=== PATIENT | female | born 1985 | race Caucasian/White ===

== ENCOUNTER 2016-10-06 12:59 | Emergency (ER) | payer MEDICAID, OTHER ==
[2016-10-06] MEDS ORDERED: NORMAL SALINE 1,000 ML IV ONE (13:22)
[2016-10-06] MEDS ORDERED: ONDANSETRON HCL/PF 2 MG/ML VIAL IV ONE (13:22)
[2016-10-06] MEDS ORDERED: KETOROLAC TROMETHAMINE 30 MG/ML VIAL IV ONE (13:22)
[2016-10-06] MEDS ORDERED: KETOROLAC TROMETHAMINE 30 MG/ML VIAL ONE (13:30)
[2016-10-06] MEDS ORDERED: ONDANSETRON HCL/PF 2 MG/ML VIAL ONE (13:30)
[2016-10-06 13:38] LABS: Urine Bilirubin Negative (NEGATIVE); Urine Blood 250 /ul (NEGATIVE); Urine Ketone 50 mg/dL (NEGATIVE); Urine Nitrite Negative (NEGATIVE); Urine Protein Negative (NEGATIVE); Urine Urobilinogen Normal (NORMAL); Urine pH 6.5 pH (5.0-7.0)
[2016-10-06 13:51] LABS: Urine Appearance Cloudy; Urine Bacteria None Seen; Urine Color Yellow; Urine RBC >50 /hpf (0-5); Urine WBC None Seen /hpf (0-5)
--- NOTE | 2016-10-06 14:07 | ERNOTE ---
Abdominal HPI - Narrative Date of Service: 10/06/16 - General Chief Complaint: Back Pain Time Seen by Provider: 10/06/16 13:12 Source: patient, RN notes reviewed Exam Limitations: no limitations - Immun/Allergies/Home Medications Immunizatons: IMMUNIZATION HX Immunizations Up to Date Yes History of Influenza Vaccine No Hx Pneumococcal Vaccination No Allergies/Adverse Reactions: Allergies codeine Allergy (Intermediate, Verified 09/21/15 12:27) Hives Home Medications: HOME MEDICATIONS Ascorbic Acid [Vitamin C] 500 mg PO DAILY 11/29/15 [Last Taken Unknown] Docusate Sodium [Stool Softener] 50 mg PO BID 11/29/15 [Last Taken Unknown] Ferrous Sulfate [Iron] 325 mg PO DAILY 11/29/15 [Last Taken Unknown] Ibuprofen [Motrin] 200 - 800 mg PO Q6H PRN #100 tab 11/30/15 [Last Taken Unknown ] Oxycodone HCl/Acetaminophen [Percocet 5-325 mg Tablet] 1 each PO Q4H PRN #20 tablet 11/30/15 [Last Taken Unknown] Vit#96/Ferrous Fum/FA [ S] 1 tab PO DAILY 11/30/15 [Last Taken Unknown] HYDROcodone/ACETAMINOPHEN [[place] 5-325] 1 - 2 tab PO Q6H PRN #20 tab 10/06/16 [ Last Taken Unknown] Ibuprofen [Motrin] 600 mg PO Q6H PRN #40 tab 10/06/16 [Last Taken Unknown] Tamsulosin HCl [Flomax] 0.4 mg PO DAILY #14 capsule 10/06/16 [Last Taken Unknown ] - Pain Score Pain Score #1 Pain Score: 10 Abdominal Pain Onset Location: flank Pain Radiation: RLQ - History of Present Illness Narrative: 30 y/o female ambulatory to the ED for right flank pain that began this morning. She has vomited once and continues to have nausea. She denies diarrhea. She reports having kidney stones in the past. She has not taken anything for her symptoms. Date (Duration): 10/06/16 Time (Timing): 05:00 Timing: constant Quality: severe Activities at Onset: none Associated Symptoms: Present: back pain, nausea, vomiting, loss of appetite. Absent: headache, chest pain, neck pain, diaphoresis, diarrhea-gross blood, diarrhea-mucous, fever/chills, heartburn, shortness of breath, swelling/mass in abdomen, syncope, weakness Prior Abdominal Problems: Present: similar symptoms Prior Treatment: Absent: recently seen Review of Systems - Review of Systems Constitutional: Absent: recent illness, fever, chills EYE: Present: no symptoms reported ENT: Present: no symptoms reported Respiratory: Absent: shortness of breath, cough Cardiology: Absent: chest pain, palpitations, syncope Gastrointestinal/Abdominal: Present: nausea, vomiting, eating less, drinking less. Absent: diarrhea, constipation Genitourinary: Absent: frequency, dysuria, hematuria, other - difficulty urinating Musculoskeletal: Present: back pain. Absent: neck pain Skin: Absent: rash, lesions Neurological: Present: no symptoms reported Endocrine: Present: no symptoms reported Hematologic/Lymphatic: Present: no symptoms reported Psych: Present: no symptoms reported - Patient's Past Medical History Patient History - Medical: Kidney stone Patient History - Cardiac/Respiratory: No pertinent hx Patient History - Cancer: No Hx of Cancer Patient History - Surgical Procedures: Patient History - Other: None LMP (females 10-50): Mirena - Social History Living Situations: home Smoking Status: Never smoker Alcohol Use: none Drug Use: none - Immunizations Immunizations Up to Date: Yes Hx Pneumococcal Vaccination: No History of Influenza Vaccine: No Physical Exam - Physical Exam General Appearance: Present: wd/wn, alert, mild distress Eye Exam: Normal inspection: bilateral Neck: Present: normal inspection, nontender, supple, full range of motion Respiratory: Present: no respiratory distress, normal breath sounds, no accessory muscle use, lungs clear Cardiovascular/Chest: Present: regular rate, rhythm, no murmur Gastrointestinal/Abdominal: Present: normal bowel sounds, nondistended, soft, tenderness - Right lower quad Back Exam: Present: no vertebral tenderness, CVA tenderness (R). Absent: CVA tenderness (L) Extremity Exam: Present: normal inspection, no edema, normal range of motion Neurological Exam: Present: alert, oriented, normal mood/affect, no motor/ sensory deficits Skin Exam: Present: normal color, warm/dry ED Progress - Results and Orders Patient's Lab Results:: I have reviewed the patient's lab results. - Vital Signs Patient's Vital Signs:: I have reviewed the patient's vital signs. Vital Signs: Vital Signs 10/06/16 13:05 Temperature 36.6 C Pulse Rate 73 Respiratory 131 H Rate Blood Pressure 132/94 O2 Sat by Pulse 98 Oximetry - CT/Ultrasound CT/Ultrasound Narrative: CT Abdomen/Pelvis W/O Contrast Findings: Exam is limited by noncontrast technique. Lung bases: Images reveal bibasilar dependent atelectasis. ABDOMEN/PELVIS: Liver: The visualized liver is unremarkable. Spleen: Unremarkable. Pancreas: Unremarkable. Gallbladder: Unremarkable. Adrenal glands: Unremarkable. Kidneys: There is a 4 mm calcification at the distal right ureter, just proximal to the right UVJ, with moderate right hydroureter and mild to moderate right hydronephrosis. There is right perinephric and right periureteral fat stranding. There is a 2 mm nonobstructing calculus at the upper to midpole of the left kidney. Normal course of the ureters. No left obstructive uropathy. No obvious renal mass or cyst, however, assessment is limited. There is fat stranding that extends to the anterior right pararenal fascia. Bowel: Limited evaluation of the unopacified hollow viscera. No evidence of bowel obstruction. Normal appendix. Stool retention. Pelvic structures: There is a IUD in satisfactory positioning. Incomplete urinary bladder distention. No bladder calculi. Trace pelvic free fluid. The pelvic structures are otherwise unremarkable.. Vascular structures: Normal caliber aorta. Lymphadenopathy: No significant lymphadenopathy. No pneumoperitoneum. No hemoperitoneum. No loculated fluid collections. Osseous structures: Degenerative changes are present. No acute osseous findings. Abdominal wall: There is a small fat-containing umbilical hernia. IMPRESSION: 4 mm obstructing calculus at the distal right ureter, as above. Nonobstructing left nephrolithiasis. Additional findings and comments are as above. Electronically signed by Margarito Landon D.O.. - Progress/Reassessment Chief Complaint: Back Pain Progress:: Improved Plan - Plan Plan: Pain improved but not completely resolved with Toradol, Morphine given with good results. No nausea/vomiting after Zofran. D/C'd home with equipment to strain urine. Is to contact urology for follow up. Departure - Departure Clinical Impression: Ureteral calculus, right Disposition: Home Follow Up Needed Condition: Stable Instructions: Renal Colic, [id number], Form - Excuse from Work, School, or Physical Activity Additional Instructions: Push fluids Return if you are vomiting and unable to tolerate oral intake/medications, or if medication is not controlling your pain Contact urology Saturday morning Referrals: Mynor Robison MD [Associate] - Prescriptions: HYDROcodone/ACETAMINOPHEN [[place] 5-325] 1 - 2 tab PO Q6H PRN #20 tab PRN Reason: Pain Ibuprofen [Motrin] 600 mg PO Q6H PRN #40 tab PRN Reason: Pain Tamsulosin HCl [Flomax] 0.4 mg PO DAILY #14 capsule
[2016-10-06] MEDS ORDERED: MORPHINE SULFATE 2 MG/ML DISP.SYRIN ONE (14:46)
[2016-10-06] MEDS ORDERED: MORPHINE SULFATE 2 MG/ML DISP.SYRIN IV ONE (14:47)
[2016-10-06 15:25] VITALS: BP 126/73
== END 2016-10-06 15:33 | disposition home or self-care (01) ==
LOC: ER 12:59
DX: N20.1 Calculus of ureter (principal); Z87.442 Personal history of urinary calculi

== ENCOUNTER 2016-10-08 13:27 | Observation (INO) | payer OTHER ==
[2016-10-08 14:19] LABS: Hemoglobin 11.6 gm/dL (12.5-16.0); Mean Cell Volume 88.3 fl (78-100); Mean Corpuscular Hemoglobin 30.1 pg (27-31); Mean Corpuscular Hgb Conc 34.1 g/dl (32-36); Neutrophil # 8.4 K/mm3 (1.3-6.0); Neutrophil % 82.7 % (42-75.0); Platelet Count 223 K/mm3 (150-450); Red Blood Count 3.85 M/mm3 (4.2-5.4); Red Cell Distribution Width 12.1 % (11.5-14.0); White Blood Count 10.1 K/mm3 (4.0-10.5)
[2016-10-08 14:30] LABS: Albumin * 3.1 gm/dl (3.4-5.0); BUN/Creatinine Ratio 9.1 (9.0-21.6); Bilirubin, Total 0.8 mg/dL (0.0-1.1); Ca. Corrected For Albumin 9.1 mg/dL (8.4-10.2); Calcium * 8.7 mg/dL (7.9-10.9); Carbon Dioxide 22.5 mmol/L (24-32.6); Potassium 3.5 mmol/L (3.4-4.6)
[2016-10-08] MEDS ORDERED: HYDROmorphone HCL 1 MG/ML DISP.SYRIN IV ONE (15:55)
[2016-10-08] MEDS ORDERED: NORMAL SALINE 1,000 ML IV ONE (15:55)
--- NOTE | 2016-10-08 16:17 | ERNOTE ---
Medical Problem HPI - Narrative Date of Service: 10/08/16 - General Chief Complaint: General Assessment Time Seen by Provider: 10/08/16 15:45 Source: patient Exam Limitations: no limitations - Immun/Allergies/Home Medications Immunizations: IMMUNIZATION HX Immunizations Up to Date Yes History of Influenza Vaccine No Hx Pneumococcal Vaccination No Allergies/Adverse Reactions: Allergies codeine Allergy (Intermediate, Verified 10/08/16 13:46) Hives Home Medications: HOME MEDICATIONS Ibuprofen [Motrin] 200 - 800 mg PO Q6H PRN #100 tab 11/30/15 [Last Taken Unknown ] HYDROcodone/ACETAMINOPHEN [[place] 5-325] 1 - 2 tab PO Q6H PRN #20 tab 10/06/16 [ Last Taken Unknown] Ibuprofen [Motrin] 600 mg PO Q6H PRN #40 tab 10/06/16 [Last Taken Unknown] Tamsulosin HCl [Flomax] 0.4 mg PO DAILY #14 capsule 10/06/16 [Last Taken Unknown ] - History of Present History Narrative: Pt. comes in with c/o R flank pain generalized muscle aches, chills, diaphoresis , and fatigue. Pt. denies any SOB, CP, NVD, fever, cough, rhinorrhea, sinus congestion, headache. Pt. states that she has been taking the norco for pain and it is not alleviating the pain. Pt. denies any alleviating factors or passing the stone despite taking flomax and straining her urine. Review of Systems - Review of Systems Constitutional: Present: chills, diaphoresis, weakness, fatigue, malaise. Absent: fever EYE: Present: no symptoms reported ENT: Present: no symptoms reported. Absent: nose pain, nose congestion, nasal drainage, sore throat, throat swelling Respiratory: Present: shortness of breath. Absent: cough, orthopnea, wheezing Cardiology: Present: no symptoms reported. Absent: chest pain, palpitations, edema Gastrointestinal/Abdominal: Present: no symptoms reported. Absent: nausea, vomiting, diarrhea, abdominal pain Genitourinary: Present: pain - R flank Musculoskeletal: Present: back pain, neck pain, joint pain Skin: Present: no symptoms reported Neurological: Present: headache. Absent: dizziness/light-headedness, numbness, tingling All Other Systems: All systems neg except as marked - Patient's Past Medical History Patient History - Medical: Kidney stone Patient History - Cardiac/Respiratory: No pertinent hx Patient History - Cancer: No Hx of Cancer Patient History - Surgical Procedures: Patient History - Other: None - Social History Living Situations: home Alcohol Use: none Drug Use: none - Immunizations Immunizations Up to Date: Yes Hx Pneumococcal Vaccination: No History of Influenza Vaccine: No Physical Exam - Physical Exam General Appearance: Present: wd/wn, alert, no apparent distress Eye Exam: Normal inspection: bilateral, PERRL: bilateral, EOMI: bilateral Ears, Nose, Throat: Present: normal ENT inspection, hearing grossly normal, normal pharynx Neck: Present: normal inspection, nontender, supple, full range of motion. Absent: lymphadenopathy (R), lymphadenopathy (L), tender lateral, tender posterior midline Respiratory: Present: no respiratory distress, normal breath sounds, no accessory muscle use, chest nontender, lungs clear. 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 - Results and Orders Patient's Lab Results:: I have reviewed the patient's lab results. - Vital Signs Patient's Vital Signs:: I have reviewed the patient's vital signs. Vital Signs: Vital Signs 10/08/16 10/08/16 13:34 15:51 Temperature 36.9 C 36.6 C Pulse Rate 104 H Respiratory 12 Rate Blood Pressure 131/76 126/73 O2 Sat by Pulse 100 Oximetry - CT/Ultrasound CT/Ultrasound Narrative: CT with unchanged stone and unchanged hydroureter and hydronephrosis. - Progress/Reassessment Chief Complaint: General Assessment Departure - Departure Clinical Impression: Ureteral calculus, right, LUPE (acute kidney injury) Disposition: [facility] Condition: Fair
[2016-10-08] MEDS ORDERED: HYDROmorphone HCL 1 MG/ML DISP.SYRIN ONE ×2 (16:18→19:43)
[2016-10-08] MEDS ORDERED: NITROGLYCERIN IN 5 % DEXTROSE 50 MG/250 ML INFUS..BTL IV PRN (17:32)
[2016-10-08 18:56] LABS: Urine Bilirubin 1 mg/dl (NEGATIVE); Urine Blood 250 /ul (NEGATIVE); Urine Ketone 15 mg/dL (NEGATIVE); Urine Nitrite Negative (NEGATIVE); Urine Protein 30 mg/dL (NEGATIVE); Urine Specific Gravity >=1.030 SP.GR. (1.005-1.010); Urine Urobilinogen Normal (NORMAL)
[2016-10-08 18:57] LABS: Urine Appearance Turbid; Urine Bacteria 2+; Urine Color Dark Yellow; Urine RBC >50 /hpf (0-5); Urine WBC >50 /hpf (0-5)
[2016-10-08] MEDS: HYDROmorphone HCL 1 MG/ML DISP.SYRIN IV PRN ×2 (19:48→21:22)
[2016-10-08] MEDS: NORMAL SALINE 1,000 ML IV PRN (21:22)
--- NOTE | 2016-10-08 21:46 | HP ---
Chief Complaint - Chief Complaint Date of Service: 10/08/16 Time of Service: 21:50 Chief Complaint: " Abdominal pain, Flank Pain, ". Source of HPI- Pt; reliable, ER Provider report. History of Present Illness: Ms. High is a 30-yr-old WF pt who has no pertinent medical history. She seeks medical care mostly through Urgent Care [facility]. Pt reports that on 10/06, she came to the [facility] ER due to severe abdominal pain, RT flank pain & nausea. A CT scan of the abdomen was obtained during that visit and it showed she had a 4mm calcification on RT ureter and 2mm non- obstruction calculus on the LT kidney. She was discharged home from ER with prescription of Narcotics & Flomax. She was also advised to strain all urine and to arrange for a follow- up with urology. Yesterday around 5pm, she felt really tired, had headaches and back pain. She also felt nauseated and could not eat anything for the whole day. She stayed in bed all night until 10.00 when she decided to go to the walk- in clinic today for her symptoms. She is unsure if she had a fever, but says she "woke up in the night a few times drenched in sweat. "Her work-up for upper respiratory infections was negative. She was sent to the ED for further evaluation. Another CT of the abdomen was obtained and the findings were unchanged from previous CT done on 10/06/16. Her hematology lab work showed Left shift but without elevated WBC, and her CR was elevated at 1.65. The UA showed presence of infection. Urology consulted by the ERP. Pt will be admitted under observation for supportive cares with IVF hydration, pain mgt & antiemetics. She will be evaluated by the Urology in am. - Patient's Past Medical History Patient History - Medical: Kidney stone Patient History - Cardiac/Respiratory: No pertinent hx Patient History - Cancer: No Hx of Cancer Patient History - Surgical Procedures: , Other Patient History - Other: None - Family History Father Family History - Medical: No pertinent hx Mother Family History - Medical: No pertinent hx - Social History Living Situations: alone Smoking Status: Never smoker Have you smoked in the past 12 months: No Alcohol Use: rarely Drug Use: none - Immunizations Immunizations Up to Date: Yes Hx Pneumococcal Vaccination: No History of Influenza Vaccine: No Review Of Systems (GEN) - Review of Systems Generalized/Overall Review: Present: Chills, Malaise, Diaphoresis. Absent: Weakness, Fever EENTM: Absent: Eye Pain, Blurred Vision, Double Vision, Nose Congestion Respiratory: Absent: Cough, Shortness of Breath Cardiac: Absent: Chest Pain, Edema, Palpitations Abdominal: Present: Nausea. Absent: Vomiting, Hematemesis, Abdominal Pain, Constipation, Diarrhea Genitourinary: Absent: Burning, Itching, Urgency, Frequency, Hesitancy, Hematuria Musculoskeletal: Absent: Joint Pain, Back Pain, Joint Swelling Neurological: Present: Headache. Absent: Anxiety, Depressed, Emotional Problems , Numbness, Parasthesia, Seizure Skin: Absent: Dryness, Lesions, Lumps Endocrine: Absent: Intolerance to Cold, Intolerance to Heat, Increased Thirst Misc: All systems neg except as marked Allergies/Adverse Reactions: Allergies Allergy/AdvReac Type Severity Reaction Status Date / Time codeine Allergy Intermediate Hives Verified 10/08/16 13:46 Home Medications: HOME MEDICATIONS HYDROcodone/ACETAMINOPHEN [[place] 5-325] 1 - 2 tab PO Q6H PRN #20 tab 10/06/16 [ Last Taken Unknown] Ibuprofen [Motrin] 600 mg PO Q6H PRN #40 tab 10/06/16 [Last Taken Unknown] Tamsulosin HCl [Flomax] 0.4 mg PO DAILY #14 capsule 10/06/16 [Last Taken Unknown ] Exam - Exam Vital Signs: Vital Signs - Last Taken Temp 37.4 C 10/08/16 20:09 Pulse 107 H 10/08/16 20:09 Resp 16 10/08/16 20:09 BP 121/73 10/08/16 20:09 Pulse Ox 100 10/08/16 20:09 Constitutional: Present: Alert, Oriented x3, No distress ENT Exam: Present: normal ENT inspection, hearing grossly normal. Absent: nasal congestion, nasal drainage Eye Exam: bilateral eye: normal inspection, PERRL Neck: Present: full range of motion, supple, normal inspection Back Exam: Present: normal inspection, CVA tenderness (R) Breasts: Present: Exam deferred Respiratory: Present: lungs clear, no accessory muscle use, No wheezing Cardiovascular/Chest: Present: regular rate, rhythm, no murmur Abdomen: Present: Normal bowel sounds, soft, nontender /Rectal: Present: Exam deferred Extremity: Present: normal range of motion, non-tender, normal inspection Skin Exam: Present: warm/dry, no cyanosis, cool/dry Neurologic: Present: no motor/sensory deficits, alert, normal mood/affect, oriented x 3 Appearance: Present: appropriate appearance, appropriate insight Eye contact: Present: cooperative, good eye contact, normal speech Thoughts: Present: normal thought pattern, no apparent hallucination Diagnostic Studies: Abnormal Lab Results 10/08/16 Range/Units Unknown Urine Protein 30 H (NEGATIVE) mg/dL Urine Blood 250 H (NEGATIVE) /ul Urine Bilirubin 1 H (NEGATIVE) mg/dl Prot Sulfosalicylic Acd 2+ H (0) mg/dL Ur Leukocyte Esterase 500 H (NEGATIVE) /ul Urine RBC >50 H (0-5) /hpf Urine WBC >50 H (0-5) /hpf Urine Bacteria 2+ H (NONE) Laboratory Results WBC 10.1 K/mm3 (4.0-10.5) 10/08/16 14:12 RBC 3.85 M/mm3 (4.2-5.4) L 10/08/16 14:12 Hgb 11.6 gm/dL (12.5-16.0) L 10/08/16 14:12 Hct 34.0 % (37.0-47.0) L 10/08/16 14:12 MCV 88.3 fl (78-100) 10/08/16 14:12 MCH 30.1 pg (27-31) 10/08/16 14:12 MCHC 34.1 g/dl (32-36) 10/08/16 14:12 RDW 12.1 % (11.5-14.0) 10/08/16 14:12 Plt Count 223 K/mm3 (150-450) 10/08/16 14:12 MPV 9.0 fl (6.0-9.5) 10/08/16 14:12 Immature Gran % (Auto) 0.50 % (0.001-0.429) H 10/08/16 14:12 Immature Gran # (Auto) 0.05 K/mm3 (0.000-0.0310) H 10/08/16 14:12 Neutrophils % 82.7 % (42-75.0) H 10/08/16 14:12 Lymphocytes % 9.0 % (20-51) L 10/08/16 14:12 Monocytes % 7.4 % (0.0-9) 10/08/16 14:12 Eosinophils % 0.1 % (0.0-3.0) 10/08/16 14:12 Basophils % 0.3 % (0.0-1.0) 10/08/16 14:12 Nucleated RBC % 0.0 k/mm3 (0-1) 10/08/16 14:12 Neutrophils # 8.4 K/mm3 (1.3-6.0) H 10/08/16 14:12 Lymphocytes # 0.9 k/mm3 (1.5-3.5) L 10/08/16 14:12 Monocytes # 0.8 k/mm3 (0.0-1.0) 10/08/16 14:12 Eosinophils # 0.0 k/mm3 (0.0-0.7) 10/08/16 14:12 Absolute Basophils 0.0 k/mm3 (0.0-0.1) 10/08/16 14:12 ESR 44 mm/hr (0-15) H 10/08/16 14:12 Sodium 135 mmol/L (132-142) 10/08/16 14:12 Plasma Sodium 135 mmol/L (130-142) 10/08/16 14:12 Potassium 3.5 mmol/L (3.4-4.6) 10/08/16 14:12 Chloride 103 mmol/L (97-106) 10/08/16 14:12 Carbon Dioxide 22.5 mmol/L (24-32.6) L 10/08/16 14:12 Anion Gap 13.0 mmol/L (6.8-13.8) 10/08/16 14:12 BUN 15 mg/dL (3-23) 10/08/16 14:12 Creatinine 1.65 mg/dL (0.4-1.4) H 10/08/16 14:12 Est GFR (Non-Af Amer) 39 mL/min (60-130) L 10/08/16 14:12 BUN/Creatinine Ratio 9.1 (9.0-21.6) 10/08/16 14:12 Random Glucose 95 mg/dL (70-110) 10/08/16 14:12 Calcium 8.7 mg/dL (7.9-10.9) 10/08/16 14:12 Calcium Adj for Albumin 9.1 mg/dL (8.4-10.2) 10/08/16 14:12 Total Bilirubin 0.8 mg/dL (0.0-1.1) 10/08/16 14:12 AST 10 U/L (0-48) 10/08/16 14:12 ALT 14 U/L (19-67) L 10/08/16 14:12 Alkaline Phosphatase 72 U/L (50-170) 10/08/16 14:12 C-Reactive Prot, Quant Less than 0.2 mg/dL (0.0-0.9) 10/08/16 14:12 Total Protein 7.0 gm/dL (6.2-8.2) 10/08/16 14:12 Albumin 3.1 gm/dl (3.4-5.0) L 10/08/16 14:12 Urine Color Dark yellow 10/08/16 Unknown Urine Appearance Turbid 10/08/16 Unknown Urine pH 6.0 pH (5.0-7.0) 10/08/16 Unknown Ur Specific [place] >=1.030 SP.GR. (1.005-1.010) 10/08/16 Unknown Urine Protein 30 mg/dL (NEGATIVE) H 10/08/16 Unknown Urine Glucose (UA) Negative mg/dL (NEGATIVE) 10/08/16 Unknown Urine Ketones 15 mg/dL (NEGATIVE) 10/08/16 Unknown Urine Blood 250 /ul (NEGATIVE) H 10/08/16 Unknown Urine Nitrate Negative (NEGATIVE) 10/08/16 Unknown Urine Bilirubin 1 mg/dl (NEGATIVE) H 10/08/16 Unknown Urine Ictotest Negative (NEGATIVE) 10/08/16 Unknown Prot Sulfosalicylic Acd 2+ mg/dL (0) H 10/08/16 Unknown Urine Urobilinogen Normal EU/dl (NORMAL) 10/08/16 Unknown Ur Leukocyte Esterase 500 /ul (NEGATIVE) H 10/08/16 Unknown Urine RBC >50 /hpf (0-5) H 10/08/16 Unknown Urine WBC >50 /hpf (0-5) H 10/08/16 Unknown Ur Epithelial Cells 0-5 /hpf (0-5) 10/08/16 Unknown Urine Bacteria 2+ (NONE) H 10/08/16 Unknown Urine Culture Comments Culture to follow 10/08/16 Unknown Assessment/Plan - Assessment/Plan (1) Hydronephrosis Assessment: The CT Abdomen showed 4mm obstructive stone at the distal right ureter causing hydronephrosis. Urology consulted and will evaluate pt in am. Will provide supportive cares with: IVF hydration, pain mgt, & antiemetics. Labs in am. The obstruction may have predisposed her to a UTI. Will cover with IV antibiotics. Problem: Acute Qualifiers: Hydronephrosis type: with ureteral calculous obstruction Qualified Code(s) : N13.2 - Hydronephrosis with renal and ureteral calculous obstruction (2) UTI (urinary tract infection) Assessment: UA shows infection. Can also be pylonephritis with urinary tract obstruction. Will treat with IV rocephin and switch when culture results. Problem: Acute (3) Urolithiasis Assessment: Failed outpatient treatment with medical expulsion therapy with Flomax as she did not pass the stone spontaneously. Urology will determine further treatment interventions in am. Will keep NPO and continue with supportive cares. Problem: Acute (4) LUPE (acute kidney injury) Assessment: Has postrenal causes due to extrarenal/intrarenal obstruction of urinary flow- relief of obstruction will provide recovery to LUPE. Problem: Acute
[2016-10-08] MEDS ORDERED: ONDANSETRON HCL/PF 2 MG/ML VIAL IV PRN (22:33)
[2016-10-08] MEDS: ACETAMINOPHEN 325 MG TABLET PO PRN (22:53)
[2016-10-09] MEDS: HYDROmorphone HCL 1 MG/ML DISP.SYRIN IV PRN ×5 (05:19→23:16)
[2016-10-09] MEDS: NORMAL SALINE 1,000 ML IV PRN ×3 (05:23→23:21)
[2016-10-09 06:00] LABS: Hematocrit 29.7 % (37.0-47.0); Hemoglobin 10.2 gm/dL (12.5-16.0); Mean Cell Volume 88.7 fl (78-100); Mean Corpuscular Hemoglobin 30.4 pg (27-31); Mean Corpuscular Hgb Conc 34.3 g/dl (32-36); Mean Platelet Volume 10.1 fl (6.0-9.5); Neutrophil # 5.3 K/mm3 (1.3-6.0); Neutrophil % 76.1 % (42-75.0); Platelet Count 193 K/mm3 (150-450); Red Blood Count 3.35 M/mm3 (4.2-5.4); Red Cell Distribution Width 12.1 % (11.5-14.0)
[2016-10-09 06:08] LABS: Anion Gap 13.4 mmol/L (6.8-13.8); BUN/Creatinine Ratio 10.2 (9.0-21.6); Calcium * 8.1 mg/dL (7.9-10.9); Carbon Dioxide 21.2 mmol/L (24-32.6); Estimated Creat Clear 52.6; Potassium 3.6 mmol/L (3.4-4.6)
[2016-10-09] MEDS: ACETAMINOPHEN 325 MG TABLET PO PRN ×2 (09:32→23:20)
--- NOTE | 2016-10-09 10:32 | PN ---
Subjective - Date and Time Seen Date: 10/09/16 Time: 08:30 Subjective Narrative: Patient seen and examined at bedside. Patient resting comfortably in bed. No acute issues overnight. Pain adequately controlled. Objective - Review of Systems Generalized/Overall Review: Reports: Weakness, Fatigue EENTM: Reports: No Symptoms Reported Respiratory: Reports: No Symptoms Reported Cardiac: Reports: No Symptoms Reported Abdominal: Reports: Abdominal Pain Genitourinary Symptoms: Reports: Dysuria Musculoskeletal Complaints: Reports: Back Pain Neurological: Reports: No Symptoms Reported Skin: Reports: No Symptoms Reported Endocrine: Reports: No Symptoms Reported Misc: All systems neg except as marked - Vitals Vitals: Last Vital Signs Temp 37.2 C 10/09/16 10:22 Pulse 98 10/09/16 10:22 Resp 20 10/09/16 10:22 BP 137/71 10/09/16 10:22 Pulse Ox 97 10/09/16 10:22 - Abnormal Lab Findings Abnormal Lab Findings: Abnormal Lab Results 10/08/16 10/09/16 10/09/16 Range/Units Unknown 05:30 05:30 RBC 3.35 L (4.2-5.4) M/mm3 Hgb 10.2 L (12.5-16.0) gm/dL Hct 29.7 L (37.0-47.0) % MPV 10.1 H (6.0-9.5) fl Neutrophils % 76.1 H (42-75.0) % Lymphocytes % 13.2 L (20-51) % Monocytes % 10.0 H (0.0-9) % Lymphocytes # 0.9 L (1.5-3.5) k/mm3 Carbon Dioxide 21.2 L (24-32.6) mmol/L Est GFR (Non-Af Amer) 57 L D (60-130) mL/min Urine Protein 30 H (NEGATIVE) mg/dL Urine Blood 250 H (NEGATIVE) /ul Urine Bilirubin 1 H (NEGATIVE) mg/dl Prot Sulfosalicylic Acd 2+ H (0) mg/dL Ur Leukocyte Esterase 500 H (NEGATIVE) /ul Urine RBC >50 H (0-5) /hpf Urine WBC >50 H (0-5) /hpf Urine Bacteria 2+ H (NONE) - Exam Constitutional: Present: Alert, Oriented x3, Cooperative, Well developed, Well nourished, No distress ENT Exam: Present: normal ENT inspection, hearing grossly normal, moist mucous membranes Respiratory: Present: lungs clear, normal breath sounds, no respiratory distress , no accessory muscle use Cardiovascular/Chest: Present: regular rate, rhythm, no edema, no murmur Abdomen: Present: Normal bowel sounds, soft, nondistended Extremity: Present: normal inspection, no pedal edema Skin Exam: Present: normal color, warm/dry Neurologic: Present: no motor/sensory deficits, alert, normal mood/affect, oriented x 3 Appearance: Present: appropriate appearance, appropriate insight Eye contact: Present: cooperative, good eye contact, normal speech Thoughts: Present: normal thought pattern, no apparent hallucination Assessment/Plan Plan Narrative: Continue IVF hydration. Keep patient NPO. Await further recommendations from urology. Continue to strain all urine. - Problems/Diagnosis (1) Hydronephrosis Problem: Acute Qualifiers: Hydronephrosis type: with ureteral calculous obstruction Qualified Code(s) : N13.2 - Hydronephrosis with renal and ureteral calculous obstruction (2) Pyelonephritis Problem: Acute (3) Ureteral calculus, right Problem: Acute (4) Urolithiasis Problem: Acute
[2016-10-09] MEDS ORDERED: RINGERS SOLUTION,LACTATED 1,000 ML IV ONE (13:55)
[2016-10-09] MEDS ORDERED: ceFAZolin SODIUM 1 GM VIAL IV ONE (14:15)
[2016-10-09] MEDS ORDERED: TAMSULOSIN HCL 0.4 MG CAP.SR.24H PO SCH (18:00)
[2016-10-10] MEDS: HYDROmorphone HCL 1 MG/ML DISP.SYRIN IV PRN (04:36)
--- NOTE | 2016-10-10 06:39 | PN ---
Subjective - Date and Time Seen Date: 10/10/16 Time: 06:20 Subjective Narrative: Patient seen today in bed awake with reports of headache after Dilaudid. Flank pain have improved and blood tint urine after each void. She denies dysuria and urgency. Objective - Review of Systems Generalized/Overall Review: Reports: No Symptoms Reported EENTM: Reports: No Symptoms Reported Respiratory: Reports: No Symptoms Reported Cardiac: Reports: No Symptoms Reported Abdominal: Reports: No Symptoms Reported Genitourinary Symptoms: Reports: Hematuria Musculoskeletal Complaints: Reports: Other - flank pain Neurological: Reports: Headache Skin: Reports: No Symptoms Reported Endocrine: Reports: No Symptoms Reported - Vitals Vitals: Last Vital Signs Temp 36.6 C 10/10/16 04:54 Pulse 85 10/10/16 04:54 Resp 16 10/10/16 04:54 BP 144/80 10/10/16 04:54 Pulse Ox 100 10/10/16 04:54 - Exam Constitutional: Present: Alert, Oriented x3, Cooperative, Well developed, No distress ENT Exam: Present: normal ENT inspection, moist mucous membranes Neck: Present: full range of motion Breasts: Present: Exam deferred Respiratory: Present: chest non-tender, lungs clear, normal breath sounds, no respiratory distress Cardiovascular/Chest: Present: normal peripheral pulses, regular rate, rhythm, no chest tenderness, no edema, no gallop, no JVD, no murmur Abdomen: Present: Normal bowel sounds, soft, nontender, nondistended, no rebound tenderness /Rectal: Present: Exam deferred Extremity: Present: normal range of motion, non-tender, normal inspection, no pedal edema, no calf tenderness Skin Exam: Present: normal color, warm/dry, no cyanosis Lymphatic: Present: no adenopathy Neurologic: Present: oriented x 3 Appearance: Present: appropriate appearance Eye contact: Present: cooperative Thoughts: Present: normal thought pattern Assessment/Plan Plan Narrative: 10/09/16 POD#1 cystoscopy: Secondary to Right ureteral stone + pyelonephritis unsuccessful attempt at stone removal, but had right ureteral stent placement Strain all urine and encourage oral intake Urolithiasis Failed outpatient treatment with medical expulsion therapy with Flomax as she did not pass the stone spontaneously. 10/09/16 Right ureteral stone + pyelonephritis, pt had stent placement and urologist was unable to remove stone. Encourage oral intake and strain all urine Hydronephrosis- Likely due to renal calculous obstruction Seen on CT Abdomen showed 4mm obstructive stone at the distal right ureter causing hydronephrosis. Urology following Continue with IVF hydration, pain mgt, & antiemetics. UTI (urinary tract infection) secondary to renal calculous UA shows infection. Can also be pylonephritis with urinary tract obstruction. Will treat with IV rocephin and switch when culture results. LUPE (acute kidney injury) Has postrenal causes due to extrarenal/intrarenal obstruction of urinary flow- relief of obstruction will provide recovery to LUPE. IVF hydration on adm cre 1.65---->1.18 gradually trending down - Problems/Diagnosis (1) LUPE (acute kidney injury) Problem: Resolved (2) Hydronephrosis Problem: Acute Qualifiers: Hydronephrosis type: with ureteral calculous obstruction Qualified Code(s) : N13.2 - Hydronephrosis with renal and ureteral calculous obstruction (3) Ureteral calculus, right Problem: Acute (4) Pyelonephritis Problem: Acute
[2016-10-10] MEDS: ACETAMINOPHEN 325 MG TABLET PO PRN (06:51)
[2016-10-10 07:03] LABS: BUN/Creatinine Ratio 10.1 (9.0-21.6); Carbon Dioxide 22.4 mmol/L (24-32.6); Estimated Creat Clear 69.7; Potassium 3.4 mmol/L (3.4-4.6)
[2016-10-10 07:06] VITALS: BP 124/82
[2016-10-10] MEDS: NORMAL SALINE 1,000 ML IV PRN (07:50)
--- NOTE | 2016-10-10 09:54 | DS ---
(1) Pyelonephritis Problem: Acute (2) Ureteral calculus, right Problem: Acute (3) LUPE (acute kidney injury) Problem: Resolved Description of Stay: ADMISSION DATE: 10.08.2016 DISCHARGE DATE: 10.10.2016 ADMISSION HPI: Ms. High is a 30-yr-old WF pt who has no pertinent medical history. She seeks medical care mostly through Urgent Care Clinic. Pt reports that on 10/06, she came to the [facility] ER due to severe abdominal pain, RT flank pain & nausea. A CT scan of the abdomen was obtained during that visit and it showed she had a 4mm calcification on RT ureter and 2mm non- obstruction calculus on the LT kidney. She was discharged home from ER with prescription of Narcotics & Flomax. She was also advised to strain all urine and to arrange for a follow- up with urology. Yesterday around 5pm, she felt really tired, had headaches and back pain. She also felt nauseated and could not eat anything for the whole day. She stayed in bed all night until 10.00 when she decided to go to the walk- in clinic today for her symptoms. She is unsure if she had a fever, but says she "woke up in the night a few times drenched in sweat. "Her work-up for upper respiratory infections was negative. She was sent to the ED for further evaluation. Another CT of the abdomen was obtained and the findings were unchanged from previous CT done on 10/06/16. Her hematology lab work showed Left shift but without elevated WBC, and her CR was elevated at 1.65. The UA showed presence of infection. Urology consulted by the [facility]. Pt will be admitted under observation for supportive cares with IVF hydration, pain mgt & antiemetics. She will be evaluated by the Urology in am. PROBLEM BASED HOSPITAL COURSE: Urolithiasis -Failed outpatient treatment with medical expulsion therapy with Flomax as she did not pass the stone spontaneously. -Patient underwent a cystoscopy with right retrograde pyelogram and right ureteral stent insertion by Dr. Robison on 10.09.2016. -Patient to follow-up with Dr. Robison on 10.12.2016 Hydronephrosis -Secondary to renal calculous obstruction -CT scan of the abdomen and pelvis on 10.08.2016 showed a 4mm obstructive stone at the distal right ureter causing hydronephrosis. Pyelonephritis Patient treated with IV rocephin while in the hospital She was discharged home on oral cipro and instructed to complete 13 additional days of antibiotic treatment LUPE (acute kidney injury) -Likely multifactorial secondary to both intravascular volume deplention and postrenal LUPE secondary to obstructing stone in right ureter. -Creatinine improved with IVF hydration -Creatinine WNL on the day of discharge FOLLOW-UP APPOINTMENTS: PCP within 1-[address] Robison on 10.12.2016 NEW OR CHANGED MEDICATIONS: Ciprofloxacin 500mg PO BID (X 13 days to complete a total 14 day course of antibiotics) #26 Flomax 0.4mg PO daily #14 Louann 5-325mg 1-2 tabs PO q6h PRN pain #20 DISCONTINUED MEDICATIONS: None Procedures Performed: see notes below List Procedures: Patient underwent a cystoscopy with right retrograde pyelogram and right ureteral stent insertion by Dr. Robison on 10.09.2016. Results and Findings: Laboratory Tests 10/08/16 10/08/16 10/08/16 14:12 14:12 14:12 WBC 10.1 Hgb 11.6 L MCV 88.3 ESR 44 H BUN 15 Creatinine 1.65 H 10/09/16 10/09/16 10/10/16 05:30 05:30 06:45 WBC 7.0 D Hgb 10.2 L MCV 88.7 ESR BUN 12 9 Creatinine 1.18 0.89 Discharge Disposition: Home self care Disposition: Home self-care Condition: Stable Discharge Activity: Activity as tolerated Discharge Diet: General/regular food, Other - Drink plenty of fluids Problem Oriented Discharge Instructions to Patient/Family: Kidney Stones, Easy- to-Read, Flank Pain, [id number], Ureteral Stent Implantation, Care After Additional Patient Instructions (free text): Patient scheduled for follow-up with Dr. Robison on Saturday, 10.12.2016. Follow-up with PCP within 1-2 weeks, Onetime follow up with Dr. Thomas on @ 1:15pm. Prescriptions (Any new or edited meds): Ciprofloxacin HCl [Cipro] 500 mg PO BID #26 tab Complete Home Medications List: Complete Home Medication List: HYDROcodone/ACETAMINOPHEN [Louann 5-325] 1 - 2 tab PO Q6H PRN #20 tab 10/06/16 Ibuprofen [Motrin] 600 mg PO Q6H PRN #40 tab 10/06/16 Tamsulosin HCl [Flomax] 0.4 mg PO DAILY #14 capsule 10/06/16 Ciprofloxacin HCl [Cipro] 500 mg PO BID #26 tab 10/10/16
== END 2016-10-10 10:40 | disposition home or self-care (01) ==
LOC: ER 13:27 → MS 18:35
PROVIDERS: ADMIT Internal Medicine; ATTEND Internal Medicine
PROC: BT1DZZZ Fluoroscopy of Right Kidney, Ureter and Bladder (ICD-10-PCS; 2016-10-09)
PROC: 0T9680Z Drainage of Right Ureter with Drainage Device, Via Natural or Artificial Opening Endoscopic (ICD-10-PCS; 2016-10-09)
PROC: 0T768DZ Dilation of Right Ureter with Intraluminal Device, Via Natural or Artificial Opening Endoscopic (ICD-10-PCS; principal; 2016-10-09 13:30)
DX: N13.6 Pyonephrosis (principal); B96.89 Other specified bacterial agents as the cause of diseases classified elsewhere; N17.9 Acute kidney failure, unspecified
CPT/HCPCS: 36415; 52005; 52332; 74176; 74450; 76000; 80048; 80053; 81001; 85025; 85652; 86140; 87040; 87077; 87086; 87186; 96374; 99283; G0378

== ENCOUNTER 2016-10-12 12:52 | Day surgery (SDC) | payer OTHER ==
[~2016-10-12 12:52] MED LIST: GENTAMICIN SULFATE 80 MG in DEXTROSE 5 % IN WATER 100 ML IV PRN; MORPHINE SULFATE 2 MG/ML DISP.SYRIN IV PRN; ONDANSETRON HCL/PF 2 MG/ML VIAL IV PRN
[2016-10-12] MEDS ORDERED: RINGERS SOLUTION,LACTATED 1,000 ML IV ONE (13:21)
[2016-10-12] MEDS ORDERED: IOPAMIDOL 100 ML INFUS..BTL IJ ONE ×2 (14:22)
[2016-10-12 16:13] VITALS: BP 121/60
[2016-10-15 22:22] LABS: Stone Composition 2 DNR
== END 2016-10-12 12:53 | disposition home or self-care (01) ==
LOC: AMB 12:52
PROVIDERS: ATTEND Urology
PROC: 0T768DZ Dilation of Right Ureter with Intraluminal Device, Via Natural or Artificial Opening Endoscopic (ICD-10-PCS; 2016-10-12)
PROC: 0TC68ZZ Extirpation of Matter from Right Ureter, Via Natural or Artificial Opening Endoscopic (ICD-10-PCS; principal; 2016-10-12 13:40)
DX: N20.1 Calculus of ureter (principal); Z68.33 Body mass index [BMI] 33.0-33.9, adult

== ENCOUNTER 2017-03-04 19:23 | Emergency (ER) | payer OTHER ==
[2017-03-04 20:02] LABS: Hematocrit 34.1 % (37.0-47.0); Hemoglobin 11.8 gm/dL (12.5-16.0); Mean Cell Volume 88.6 fl (78-100); Mean Corpuscular Hemoglobin 30.6 pg (27-31); Mean Corpuscular Hgb Conc 34.6 g/dl (32-36); Neutrophil # 4.2 K/mm3 (1.3-6.0); Neutrophil % 67.8 % (42-75.0); Platelet Count 256 K/mm3 (150-450); Red Blood Count 3.85 M/mm3 (4.2-5.4); Red Cell Distribution Width 12.1 % (11.5-14.0); White Blood Count 6.2 K/mm3 (4.0-10.5)
[2017-03-04 20:17] LABS: Albumin * 3.5 gm/dl (3.4-5.0); Anion Gap 10.8 mmol/L (6.8-13.8); BUN/Creatinine Ratio 17.6 (9.0-21.6); Bilirubin, Total 0.2 mg/dL (0.0-1.1); Ca. Corrected For Albumin 8.9 mg/dL (8.4-10.2); Calcium * 8.8 mg/dL (7.9-10.9); Carbon Dioxide 27.9 mmol/L (24-32.6); Potassium 3.7 mmol/L (3.4-4.6); Total Protein 6.8 gm/dL (6.2-8.2)
[2017-03-04 20:22] LABS: Urine Bilirubin Negative (NEGATIVE); Urine Blood Negative /ul (NEGATIVE); Urine Ketone Negative (NEGATIVE); Urine Nitrite Negative (NEGATIVE); Urine Protein Negative (NEGATIVE); Urine Specific Gravity >=1.030 SP.GR. (1.005-1.010); Urine Urobilinogen Normal (NORMAL); Urine pH 5.5 pH (5.0-7.0)
--- NOTE | 2017-03-04 20:30 | ERNOTE ---
ER Female HPI Date of Service: 03/04/17 Stated Complaint: 6WEEKS , PASSED CLOT Presenting Symptoms: vaginal bleeding Time Seen by Provider: 03/04/17 20:05 Source: patient Immunizations: IMMUNIZATION HX Immunizations Up to Date Yes History of Influenza Vaccine No Hx Pneumococcal Vaccination No Allergies/Adverse Reactions: Allergies codeine Allergy (Intermediate, Verified 10/12/16 13:06) Hives Home Medications: HOME MEDICATIONS Vit37/Iron/Folic Acid [Prenata Chewable Tablet] 1 each PO DAILY [Last Taken Unknown] - History of Present Illness Narrative: 31 year old that passed a clot the size of her hand this evening. No complaints of pain, cramps, fever or chills. Currently six weeks . Her last there were frequent episodes of vaginal bleeding for 20 weeks; but did go on to be full term. One spontaneous . Denies any dysuria or frequency. Timing: Present: other - sporadic Quality: Present: mild Radiation: Present: other - none Activities at Onset: Present: rest Modifying Factors - (Improves): Present: other - nothing Modifying Factors - (Worsens): Present: other - nothing Review of Systems - Review of Systems Constitutional: Present: no symptoms reported EYE: Present: no symptoms reported ENT: Present: no symptoms reported Respiratory: Present: no symptoms reported Cardiology: Present: no symptoms reported Gastrointestinal/Abdominal: Present: no symptoms reported Genitourinary: Present: no symptoms reported Musculoskeletal: Present: no symptoms reported Skin: Present: no symptoms reported Neurological: Present: no symptoms reported Endocrine: Present: no symptoms reported Hematologic/Lymphatic: Present: no symptoms reported Psych: Present: no symptoms reported - Patient's Past Medical History Patient History - Medical: Kidney stone Patient History - Cardiac/Respiratory: No pertinent hx Patient History - Cancer: No Hx of Cancer Patient History - Surgical Procedures: , Other Patient History - Other: None LMP (females 10-50): other - Family History Father Family History - Medical: No pertinent hx Family History - Cardiac/Respiratory: No pertinent hx Family History - Cancer: No pertinent family hx Mother Family History - Medical: No pertinent hx Family History - Cardiac/Respiratory: No pertinent hx Family History - Cancer: No pertinent family hx - Social History Living Situations: home Abuse History: No History of abuse Psych History: No pertinent hx Smoking Status: Never smoker Alcohol Use: rarely Drug Use: none - Immunizations Immunizations Up to Date: Yes Hx Pneumococcal Vaccination: No History of Influenza Vaccine: No Physical Exam - Physical Exam General Appearance: Present: no apparent distress Eye Exam: Normal inspection: bilateral Ears, Nose, Throat: Present: normal ENT inspection Neck: Present: supple, full range of motion Respiratory: Present: normal breath sounds Cardiovascular/Chest: Present: regular rate, rhythm Gastrointestinal/Abdominal: Present: nontender Back Exam: Present: normal inspection Extremity Exam: Present: normal inspection Neurological Exam: Present: alert, oriented, normal mood/affect Skin Exam: Present: warm/dry ED Progress - Results and Orders Patient's Lab Results:: I have reviewed the patient's lab results. - Vital Signs Patient's Vital Signs:: I have reviewed the patient's vital signs. Vital Signs: Vital Signs 03/04/17 19:31 Temperature 37.3 C Pulse Rate 69 Respiratory 15 Rate Blood Pressure 124/56 O2 Sat by Pulse 100 Oximetry - Progress/Reassessment Chief Complaint: Genitourinary Problem Progress:: Unchanged Progress Note-Subjective: 03/04/17 21:19 Quantatative HCG indicated 5-6 week . US demonstrated the yolk sac but no pole. 03/04/17 21:32 03/04/17 21:35 Departure Clinical Impression: Threatened - Departure Disposition: Home self-care Condition: Good Instructions: Vaginal Bleeding During , First Trimester, [id number] Print Language: Brazilian Additional Instructions: Call your OB physician in the AM for an appointment.
[2017-03-04 20:31] LABS: Urine Appearance Clear; Urine Bacteria None Seen; Urine Color Yellow; Urine RBC None Seen /hpf (0-5); Urine WBC None Seen /hpf (0-5)
[2017-03-04 21:08] VITALS: BP 118/73
== END 2017-03-04 21:45 | disposition home or self-care (01) ==
LOC: ER 19:23
DX: O20.0 Threatened abortion (principal); Z3A.01 Less than 8 weeks gestation of pregnancy; Z33.1 Pregnant state, incidental

== ENCOUNTER 2017-03-10 13:01 | Emergency (ER) | payer OTHER ==
[2017-03-10 13:22] VITALS: BP 133/78
--- NOTE | 2017-03-10 13:52 | ERNOTE ---
Medical Problem HPI - Narrative Date of Service: 03/10/17 - General Chief Complaint: General Assessment Time Seen by Provider: 03/10/17 13:33 Source: patient Exam Limitations: no limitations - Immun/Allergies/Home Medications Immunizations: IMMUNIZATION HX Immunizations Up to Date Yes History of Influenza Vaccine No Hx Pneumococcal Vaccination No Allergies/Adverse Reactions: Allergies codeine Allergy (Intermediate, Verified 10/12/16 13:06) Hives Home Medications: HOME MEDICATIONS Vit37/Iron/Folic Acid [Prenata Chewable Tablet] 1 each PO DAILY [Last Taken Unknown] - History of Present History Narrative: Pt. comes in with c/o vaginal bleeding for 1.5 weeks. Pt. states that it is spotting when she wipes and that there is no gross blood. Pt. denies any SOB, CP , NVD, but does state that she also has R pelvic cramping. Pt. was seen here 5 days ago for the same symptoms and the findings were equivocal so pt. would like follow up verification. Review of Systems - Review of Systems Constitutional: Present: no symptoms reported. Absent: recent illness, fever, chills, weakness, fatigue, malaise EYE: Present: no symptoms reported ENT: Present: no symptoms reported Respiratory: Present: no symptoms reported. Absent: shortness of breath, cough , wheezing Cardiology: Present: no symptoms reported. Absent: chest pain, palpitations, edema Gastrointestinal/Abdominal: Present: no symptoms reported. Absent: nausea, vomiting, diarrhea, abdominal pain Genitourinary: Present: pain - R pelvis, discharge - blood Musculoskeletal: Present: no symptoms reported. Absent: back pain, joint pain Skin: Present: no symptoms reported. Absent: rash, change in color Neurological: Present: no symptoms reported. Absent: headache, dizziness/light- headedness, numbness, tingling All Other Systems: All systems neg except as marked - Patient's Past Medical History Patient History - Medical: Kidney stone Patient History - Cardiac/Respiratory: No pertinent hx Patient History - Cancer: No Hx of Cancer Patient History - Surgical Procedures: , Other Patient History - Other: None - Family History Father Family History - Medical: No pertinent hx Family History - Cardiac/Respiratory: No pertinent hx Family History - Cancer: No pertinent family hx Mother Family History - Medical: No pertinent hx Family History - Cardiac/Respiratory: No pertinent hx Family History - Cancer: No pertinent family hx - Social History Living Situations: home Abuse History: No History of abuse Psych History: No pertinent hx Smoking Status: Never smoker Have you smoked in the past 12 months: No Do you dip or chew tobacco: No Alcohol Use: rarely Drug Use: none - Immunizations Immunizations Up to Date: Yes Hx Pneumococcal Vaccination: No History of Influenza Vaccine: No Physical Exam - Physical Exam General Appearance: Present: wd/wn, alert, no apparent distress Eye Exam: Normal inspection: bilateral, PERRL: bilateral, EOMI: bilateral Neck: Present: normal inspection, nontender. Absent: lymphadenopathy (R), lymphadenopathy (L) Respiratory: Present: no respiratory distress, normal breath sounds, no accessory muscle use, chest nontender, lungs clear Cardiovascular/Chest: Present: regular rate, rhythm, no murmur, normal peripheral pulses Gastrointestinal/Abdominal: Present: normal bowel sounds, nontender, nondistended, soft, no organomegaly Neurological Exam: Present: alert, oriented, normal mood/affect, no motor/ sensory deficits Skin Exam: Present: normal color, warm/dry. Absent: pallor, skin rash Pelvic Exam: Present: discharge - brown, tender adnexa - R. Absent: active bleeding, cervical motion tendernes, tender uterus ED Progress - Date and Time Seen: Date and Time: 03/10/17 14:48 As CBC is normal and Pt. yolk sac was noted in uterus and pt. HCG is higher feel that pt. may have bleeding throughout her and this is benign so educated pt. on this and she will follow up with her OBGYN. - Results and Orders Patient's Lab Results:: I have reviewed the patient's lab results. - Vital Signs Patient's Vital Signs:: I have reviewed the patient's vital signs. Vital Signs: Vital Signs 03/10/17 13:17 Temperature 37.0 C Pulse Rate 73 Respiratory 16 Rate Blood Pressure 133/78 O2 Sat by Pulse 100 Oximetry - Progress/Reassessment Chief Complaint: General Assessment Departure - Departure Clinical Impression: Vaginal bleeding during , antepartum Qualifiers: Trimester: first trimester Qualified Code(s): O46.91 - Antepartum hemorrhage, unspecified, first trimester Disposition: Home self-care Condition: Good Instructions: Vaginal Bleeding During , First Trimester Additional Instructions: Please follow up with Dr Knapp as planned and keep taking vitamins. Referrals: Marshall Knapp DO [Primary Care Provider] -
[2017-03-10 14:00] LABS: Hematocrit 32.7 % (37.0-47.0); Hemoglobin 11.4 gm/dL (12.5-16.0); Mean Cell Volume 86.5 fl (78-100); Mean Corpuscular Hemoglobin 30.2 pg (27-31); Mean Corpuscular Hgb Conc 34.9 g/dl (32-36); Mean Platelet Volume 9.2 fl (6.0-9.5); Neutrophil # 3.4 K/mm3 (1.3-6.0); Neutrophil % 63.6 % (42-75.0); Platelet Count 248 K/mm3 (150-450); Red Blood Count 3.78 M/mm3 (4.2-5.4); Red Cell Distribution Width 11.9 % (11.5-14.0); White Blood Count 5.3 K/mm3 (4.0-10.5)
[2017-03-10 14:15] LABS: Albumin * 3.4 gm/dl (3.4-5.0); Anion Gap 11.6 mmol/L (6.8-13.8); BUN/Creatinine Ratio 17.6 (9.0-21.6); Bilirubin, Total 0.2 mg/dL (0.0-1.1); Calcium * 8.8 mg/dL (7.9-10.9); Carbon Dioxide 25.1 mmol/L (24-32.6); Potassium 3.7 mmol/L (3.4-4.6); Total Protein 6.9 gm/dL (6.2-8.2)
== END 2017-03-10 14:55 | disposition home or self-care (01) ==
LOC: ER 13:01
DX: O46.91 Antepartum hemorrhage, unspecified, first trimester (principal); Z33.1 Pregnant state, incidental; Z3A.00 Weeks of gestation of pregnancy not specified

== ENCOUNTER 2017-04-17 09:32 | Emergency (ER) | payer OTHER ==
--- NOTE | 2017-04-17 10:14 | ERNOTE ---
ER Female HPI Stated Complaint: 12 WEEKS EXCESSIVE BLEEDING Presenting Symptoms: vaginal bleeding Time Seen by Provider: 04/17/17 09:51 Source: patient Exam Limitations: no limitations Immunizations: IMMUNIZATION HX Immunizations Up to Date Yes History of Influenza Vaccine No Hx Pneumococcal Vaccination No Allergies/Adverse Reactions: Allergies codeine Allergy (Intermediate, Verified 04/17/17 09:46) Hives Home Medications: HOME MEDICATIONS Vit37/Iron/Folic Acid [Prenata Chewable Tablet] 1 each PO DAILY [Last Taken Unknown] - History of Present Illness Narrative: Patient is a G5,P3,A1 at 12 weeks (last u/s 03/04) that is here for vaginal bleeding. Patient is working second shift and had abdominal cramping on and off through the night. At 07:00 she had an episode of vaginal bleeding that soaked her underwear and small amount since, cramping resolved at this point. Date (Duration): 04/17/17 Time (Timing): 07:00 Timing: Present: intermittent Review of Systems - Review of Systems Constitutional: Absent: recent illness, fever Respiratory: Absent: shortness of breath Cardiology: Absent: chest pain Gastrointestinal/Abdominal: Present: abdominal pain. Absent: nausea, vomiting Genitourinary: Absent: frequency, dysuria Musculoskeletal: Absent: back pain Neurological: Present: headache - intermittent migraines, currently mild - Patient's Past Medical History Patient History - Medical: Kidney stone Patient History - Cardiac/Respiratory: No pertinent hx Patient History - Cancer: No Hx of Cancer Patient History - Surgical Procedures: , Other Patient History - Other: None LMP (females 10-50): LMP (Calendar): 01/23/17 - Family History Father Family History - Medical: No pertinent hx Family History - Cardiac/Respiratory: No pertinent hx Family History - Cancer: No pertinent family hx Mother Family History - Medical: No pertinent hx Family History - Cardiac/Respiratory: No pertinent hx Family History - Cancer: No pertinent family hx - Social History Living Situations: home Abuse History: No History of abuse Psych History: No pertinent hx Smoking Status: Never smoker Alcohol Use: rarely Drug Use: none - Immunizations Immunizations Up to Date: Yes Hx Pneumococcal Vaccination: No History of Influenza Vaccine: No Physical Exam - Physical Exam General Appearance: Present: wd/wn, alert, no apparent distress Respiratory: Present: no respiratory distress, normal breath sounds, no accessory muscle use, lungs clear Cardiovascular/Chest: Present: regular rate, rhythm, no murmur Gastrointestinal/Abdominal: Present: normal bowel sounds, nontender, nondistended, soft Neurological Exam: Present: alert, oriented, normal mood/affect Pelvic Exam: Present: active bleeding - minimal blood and mucus at cervix, cervix closed. Absent: cervical motion tendernes, tender uterus ED Progress - Vital Signs Patient's Vital Signs:: I have reviewed the patient's vital signs. Vital Signs: Vital Signs 04/17/17 09:41 Temperature 36.6 C Pulse Rate 85 Respiratory 16 Rate Blood Pressure 156/81 O2 Sat by Pulse 98 Oximetry - CT/Ultrasound CT/Ultrasound Narrative: U/S: small subchorionic hemorrhage - Progress/Reassessment Chief Complaint: OB Screening Progress Note-Subjective: 04/17/17 12:11 discussed results with patient, appears comfortable patient was discussed with Dr Knapp blood type A+ Departure Clinical Impression: Subchorionic hemorrhage in first trimester - Departure Disposition: Home self-care Condition: Good Instructions: Form - Excuse from Work, School, or Physical Activity, Subchorionic Hematoma Referrals: Marshall Knapp DO [Primary Care Provider] - (as scheduled)
[2017-04-17 12:21] VITALS: BP 122/52
== END 2017-04-17 12:22 | disposition home or self-care (01) ==
LOC: ER 09:32
DX: O46.8X1 Other antepartum hemorrhage, first trimester (principal); Z3A.12 12 weeks gestation of pregnancy; Z33.1 Pregnant state, incidental